=== PATIENT | male | born 1970 | race Caucasian/White ===

== ENCOUNTER → 2016-06-07 | Outpatient (CLI) | payer OTHER ==
--- NOTE | 2016-06-07 12:35 | DI ---
Indication: [email or web address]: DIAGNOSTIC TESTING PROCEDURE: LUMBAR SPINE 3 VIEWS: Encounter: Initial Comparison: None Findings: Alignment of the lumbar spine is within normal limits. There are five nonrib bearing lumbar type vertebral bodies present. No acute fracture or subluxation. Limbus vertebra noted incidentally at L4. Disc spaces are normal. No significant degenerative changes. Impression: No acute osseous abnormality. .
--- NOTE | 2016-06-07 12:36 | DI ---
Indication: [email or web address]: DIAGNOSTIC TESTING PROCEDURE: SHOULDER RIGHT 2-3 VIEWS: Encounter: Initial Comparison: None Findings: No acute fracture or dislocation. Right acromioclavicular joint is widened at 17 mm. Coracoclavicular interval is normal. Glenohumeral joint space appears normal. Impression: Grade 2 acromioclavicular joint separation of indeterminate age. .
--- NOTE | 2016-06-07 12:38 | DI ---
Indication: [email or web address]: DIAGNOSTIC TESTING PROCEDURE: SHOULDER LEFT 3 VIEWS: Encounter: Initial Comparison: None Findings: There is no acute fracture, dislocation or malalignment identified. Acromioclavicular and glenohumeral joint spaces are normal. Impression: No acute osseous abnormality. .
--- NOTE | 2016-06-07 12:39 | DI ---
Indication: [email or web address]: DIAGNOSTIC TESTING PROCEDURE: CERVICAL SPINE 4 OR 5 VIEWS: Encounter: Initial Comparison: None Findings: Anterior C5-C7 cervical fusion with disk spacer devices. No acute fracture or subluxation. Cervicothoracic junction is intact. No evidence of hardware loosening or failure. No significant disk space narrowing. Oblique views show mild left neural foraminal stenosis at C3-C4 and C4-C5. Facet joints appear preserved. Impression: Postoperative changes. .
== END ==
LOC: IMA 11:05
DX: Z02.9 Encounter for administrative examinations, unspecified (principal)